=== PATIENT | male | born 1950 | race Caucasian/White ===

== ENCOUNTER 2019-11-26 17:00 | Outpatient (CLI) | payer MEDICARE, SELFPAY ==
[2019-11-26 17:48] LABS: Glomerular Filtration Rate 55.2 mL/min (90-130); Vancomycin Trough 14.4 ug/mL (10-15)
== END 2019-11-26 17:01 | disposition home or self-care (01) ==
LOC: LAB 17:04
PROVIDERS: Visit Provider Orthopaedic Surgery
DX: L02.416 Cutaneous abscess of left lower limb (principal); Z96.642 Presence of left artificial hip joint
CPT/HCPCS: 80202; 82565

== ENCOUNTER 2019-12-03 17:37 | Outpatient (CLI) | payer MEDICARE, SELFPAY ==
[2019-12-03 18:55] LABS: Glomerular Filtration Rate 55.2 mL/min (90-130); Vancomycin Trough 12.2 ug/mL (10-15)
== END 2019-12-03 17:38 | disposition home or self-care (01) ==
LOC: LAB 17:43
PROVIDERS: Visit Provider Orthopaedic Surgery
DX: L02.416 Cutaneous abscess of left lower limb (principal); T84.52XA Infection and inflammatory reaction due to internal left hip prosthesis, initial encounter
CPT/HCPCS: 80202; 82565

== ENCOUNTER 2019-12-10 16:46 | Outpatient (REF) | payer MEDICARE, SELFPAY ==
[2019-12-10 17:36] LABS: Blood Urea Nitrogen 12 mg/dL (8-23); Glomerular Filtration Rate 60.6 mL/min (90-130)
== END 2019-12-10 16:47 | disposition home or self-care (01) ==
LOC: LAB 16:46
PROVIDERS: Visit Provider Orthopaedic Surgery
DX: T84.52XA Infection and inflammatory reaction due to internal left hip prosthesis, initial encounter (principal)
CPT/HCPCS: 80202; 82565; 84520

== ENCOUNTER 2019-12-17 19:38 | Outpatient (REF) | payer MEDICARE, SELFPAY ==
[2019-12-17 21:11] LABS: Glomerular Filtration Rate 55.1 mL/min (90-130); Vancomycin Trough 12.6 ug/mL (10-15)
== END 2019-12-17 19:39 | disposition home or self-care (01) ==
LOC: LAB 19:38
PROVIDERS: Visit Provider Orthopaedic Surgery
DX: L02.416 Cutaneous abscess of left lower limb (principal)
CPT/HCPCS: 80202; 82565

== ENCOUNTER 2019-12-24 15:26 | Outpatient (CLI) | payer MEDICARE, SELFPAY ==
[2019-12-24 23:42] LABS: Glomerular Filtration Rate 50.5 mL/min (90-130); Vancomycin Trough 14.4 ug/mL (10-15)
== END 2019-12-24 15:27 | disposition home or self-care (01) ==
LOC: LAB 15:38
PROVIDERS: Visit Provider Orthopaedic Surgery
DX: L02.416 Cutaneous abscess of left lower limb (principal)
CPT/HCPCS: 80202; 82565